=== PATIENT | male | born 1965 | race American Indian/Alaskan Native ===

== ENCOUNTER → 2017-01-12 | Outpatient (CLI) | payer OTHER ==
[~2017-01-12] MED LIST: IBUP-1221 PO; No meds per pt.
[2017-01-12 11:49] LABS: HEMATOCRIT 45.6 % (39.2-51.8); HEMOGLOBIN 15.5 g/dL (13.7-18.0); WHITE BLOOD COUNT 6.4 x10^3/uL (3.4-10)
[2017-01-12 11:58] LABS: ASPARTATE AMINO TRANSFERASE 9 U/L (15-37); BLOOD UREA NITROGEN 11 mg/dL (7-18)
[2017-01-12 12:06] LABS: HIV 1&2 ANTIBODY SCREEN Nonreactive (Nonreactive)
[2017-01-12 12:07] LABS: HIV-1 p24 ANTIGEN Nonreactive (Nonreactive)
== END | disposition home or self-care (01) ==
LOC: STAR 10:42
PROVIDERS: ATTEND Orthopaedic Surgery
DX: Z01.818 Encounter for other preprocedural examination (principal); R79.89 Other specified abnormal findings of blood chemistry; T84.84XS Pain due to internal orthopedic prosthetic devices, implants and grafts, sequela; Z96.642 Presence of left artificial hip joint
CPT/HCPCS: 36415; 80053; 83036; 85025; 85610; 85730; 86703; 87081; 87899; 93005; G0435